=== PATIENT | male | born 1995 | race American Indian/Alaskan Native ===

== ENCOUNTER 2022-04-12 08:02 | Emergency (ER) | payer SELFPAY ==
[2022-04-12] MEDS ORDERED: BUTALB/ACETAMINOPHEN/CAFFEINE TAB PO ONE (09:16)
[2022-04-12] MEDS ORDERED: IBUPROFEN 800 MG TAB PO ONE (09:16)
--- NOTE | 2022-04-12 09:16 | Emergency Department Report ---
ED Headache HPI - General Chief Complaint: Headache Stated Complaint: MIGRAINE/RIGHT EAR PAIN Time Seen by Provider: 04/12/22 09:08 Source: patient, family - History of Present Illness Initial Comments: Patient is a 26-year-old male that comes to the ER complaining of a headache. He states that he has no photophobia. No nausea or vomiting. No head trauma. No fever or chills. He denies any other systemic complaints. On performing the HPI he realized that his headaches came about the time that he ran out of his contact lenses. He does not wear glasses. He acknowledges that he probably needs to get his contacts refilled. Patient is neurovascularly intact cranial nerves intact. He has no other neurological or other concerning complaints. Quality: mild Head Injury Location: temporal Recent Head Trauma: frequent headaches Modifying Factors: worse with: cold therapy, exposure to light, immobilization, medication, movement, rest, other Associated Symptoms: denies: denies symptoms, confusion, fatigue, facial pain, fever/chills, flushing, loss of consciousness, nausea/vomiting, nasal congestion, nasal drainage, numbness in legs/feet, rash, seizures, sinus infection, stiff neck, vision changes, weakness, other Allergies/Adverse Reactions: Allergies amoxicillin Allergy (Verified 04/12/22 08:19) Unknown Home Medications: Ambulatory Orders Acetaminophen [Tylenol Extra Strength] 1,000 mg PO Q8H PRN #30 04/12/22 Ibuprofen [Motrin] 800 mg PO Q8HR PRN #30 tablet 04/12/22 ED Review of Systems ROS: Stated complaint: MIGRAINE/RIGHT EAR PAIN Other details as noted in HPI Comment: All other systems reviewed and negative ED Past Medical Hx - Past Medical History Previous Medical History?: No - Surgical History Past Surgical History?: Yes Additional Surgical History: wisdom tooth extraction - Family History Family history: no significant - Social History Smoking Status: Never Smoker Substance Use Type: None - Medications Home Medications: Home Medications Medication Instructions Recorded Confirmed Last Taken Type Acetaminophen [Tylenol Extra 1,000 mg PO Q8H PRN #30 04/12/22 Unknown Rx Strength] Ibuprofen [Motrin] 800 mg PO Q8HR PRN #30 tablet 04/12/22 Unknown Rx ED Physical Exam - General Limitations: No Limitations General appearance: alert, in no apparent distress - Head Head exam: Present: atraumatic, normocephalic - Eye Eye exam: Present: normal appearance - ENT ENT exam: Present: mucous membranes moist - Neck Neck exam: Present: normal inspection - Respiratory Respiratory exam: Present: normal lung sounds bilaterally. Absent: respiratory distress - Cardiovascular Cardiovascular Exam: Present: regular rate, normal rhythm. Absent: systolic murmur, diastolic murmur, rubs, gallop - GI/Abdominal GI/Abdominal exam: Present: soft, normal bowel sounds - Rectal Rectal exam: Present: deferred - Extremities Exam Extremities exam: Present: normal inspection - Back Exam Back exam: Present: normal inspection - Neurological Exam Neurological exam: Present: alert, oriented X3 - Psychiatric Psychiatric exam: Present: normal affect, normal mood - Skin Skin exam: Present: warm, dry, intact, normal color. Absent: rash ED Course Vital Signs 04/12/22 04/12/22 08:15 09:41 Temperature 97.7 F Pulse Rate 54 L 77 Respiratory 14 16 Rate Blood Pressure 161/91 Blood Pressure 123/86 [Left] O2 Sat by Pulse 99 100 Oximetry ED Medical Decision Making - Medical Decision Making Vital Signs 04/12/22 04/12/22 08:15 09:41 Temperature 97.7 F Pulse Rate 54 L 77 Respiratory 14 16 Rate Blood Pressure 161/91 Blood Pressure 123/86 [Left] O2 Sat by Pulse 99 100 Oximetry Vital signs are normal. The patient is neurologically intact. He denies any trauma. This headache has been occurring off and on for 1 month. It is related to when he ran out of contact lenses and does not have glasses. Patient has been encouraged to see the eye doctor. Patient being discharged home with discharge plan of care including diet, activity, medications and follow-up. I have advised him to see an silviculture professor to get his contacts refilled - Differential Diagnosis Headache/sinusitis Critical care attestation.: If time is entered above; I have spent that time in minutes in the direct care of this critically ill patient, excluding procedure time. ED Disposition Clinical Impression: Headache Qualifiers: Headache type: unspecified Headache chronicity pattern: episodic headache Intractability: not intractable Qualified Code(s): R51.9 - Headache, unspecified Disposition: 01 HOME / SELF CARE / HOMELESS Is pt being admited?: No Does the pt Need Aspirin: No Condition: Stable Additional Instructions: STAY WELL HYDRATED WITH WATER MEDS ORDERED TODAY FOLLOW UP WITH PCP IF PROBLEMS PERSIST REFERRAL BELOW OVER THE COUNTER CERUMENEX FOR EAR WAX Prescriptions: Ibuprofen [Motrin] 800 mg PO Q8HR PRN #30 tablet PRN Reason: Pain, Moderate (4-6) Acetaminophen [Tylenol Extra Strength] 1,000 mg PO Q8H PRN #30 PRN Reason: Pain, Moderate (4-6) Referrals: BRYNN NIEVES MD [Staff Physician] - 3-5 Days Forms: Work/School Release Form(ED) Time of Disposition: 09:13
[2022-04-12 09:41] VITALS: BP 123/86
== END 2022-04-12 09:50 | disposition home or self-care (01) ==
LOC: ED 08:02
DX: R51.9 Headache, unspecified (principal); Z98.890 Other specified postprocedural states; Z88.0 Allergy status to penicillin
CPT/HCPCS: 99282